=== PATIENT | male | born 1940 | race Caucasian/White ===

== ENCOUNTER → 2020-06-11 | Outpatient (CLI) | payer MEDICARE, OTHER ==
[~2020-06-11] MED LIST: AMARYL2 MG PO; CENTRUM SILVER1 EAC2 PO; CLARITIN10 MG PO; CRESTOR10 MG PO; FISH OIL 1,001000 M2 PO; HYDROCODON-ACE1 EAC7 PO; IBUPROFEN 200200 M1 PO; KLOR-CON 10 ER10 MEQ PO; LISINOPRIL20 MG PO; MIRALAX17 GM PO; NEURONTIN 400400 M1 PO; NORVASC5 MG PO; PINDOLOL10 MG PO; TRIAMTERENE-HC1 EAC1 PO; ZANTAC 150MG T150 MG PO
--- NOTE | 2020-06-13 17:00 | CARDNUC ---
[place] [address] CARDIAC NUCLEAR IMAGING REPORT Name: LIZET GILLILAND Keila Room: [facility]#: [id number] Admission: 06/11/20 Attend Phys: Ren Jimenez Discharge: Date of : 44 Date of Service: 06/13/20 1659 Report #: [id number] THIS REPORT FOR: cc: Melba West MD, Lin W. MD Liston, Michael J. MD [facility] ~ APPROVED REPORT Imaging Protocol: Stress Tc-99m/Rest Tc-99m 1 day Study performed: 06/11/2020 12:30:00 Indication: Dyspnea, Pre-Operative CV evaluation Patient Location: Out-Patient Stress Tech: Marielos Chavarria Stress Nurse: Twila Guido RN Ht: 5 ft 4 in Wt: 140 lbs BSA: 1.68 m2 BMI: 24.02 Medical History Medical History: CAD non obstructive, HTN, Hyperlipidemia Medications: amlodipine, lisinopril, pindolol, klor-con, rosuvastatin, maxide Allergies: No known drug allergies Exercise History: Indeterminate Meds Held (24 hrs): pindolol Resting Data Rest SPECT myocardial perfusion imaging was performed in supine position 30 minutes following the intravenous injection of 10.7 mCi of Tc-99m Sestamibi. Time of rest injection: 13:05 Administration Route: IV Administration Site: Right Hand Pharmacologic Stress Pharmacologic stress test was performed by injecting Regadenoson 0.4 mg IV push over 10-15 seconds immediately followed by the intravenous injection of 32.6 mCi of Tc-99m Sestamibi. Time of stress injection: 14:30 Administration Route: IV Administration Site: Right Hand Heart Rate at time of stress injection: [place] [address] CARDIAC NUCLEAR IMAGING REPORT Name: LIZET GILLILAND Room: [facility]#: [id number] Admission: 06/11/20 Attend Phys: Ren Jimenez Discharge: Date of : 44 Date of Service: 06/13/20 1659 Report #: [id number] Gated Stress SPECT was performed 40 minutes after stress injection. The images were gated to evaluate regional wall motion and calculate left ventricular ejection fraction. Stress Test Details Stress Test: Pharmacologic stress testing performed using 0.4 mg of regadenoson per 5 mL given IV over 10 seconds. Reason for pharmacologic stress test: physical limitation. HR Max Heart Rate (APMHR): 142 bpm Resting HR: 59 bpm Target HR (85% APMHR): 120 bpm Max HR Achieved: 67 bpm % of APMHR: 47 Recovery HR: 59 bpm BP Resting BP: 136/85 mmHg Max BP: 120/56 mmHg Recovery BP: 180/57 mmHg ECG Resting ECG: Sinus Rhythm Stress ECG: Sinus Rhythm ST Change: None Arrhythmia: None Recovery ECG: Sinus Rhythm Recovery ST Change: None Recovery Arrhythmia: None Clinical Reason for Termination: Completed protocol Patient tolerated Lexiscan infusion without significant cardiac symptoms. Nurse Comments pt has amputated leg Stress ECG Conclusion The baseline twelve-lead EKG shows sinus rhythm without significant ST segment or T wave abnormalities. EKGs obtained during and post Lexiscan infusion show sinus rhythm with no significant ST segment or T wave changes when compared to baseline. There were no stress-induced arrhythmias. Study Quality Study: [place] [address] CARDIAC NUCLEAR IMAGING REPORT Name: LIZET GILLILAND Room: [facility]#: [id number] Admission: 06/11/20 Attend Phys: Ren Jimenez Discharge: Date of : 44 Date of Service: 06/13/20 1659 Report #: [id number] Artifact: Mild Diaphragmatic artifact Study Data At rest, the left ventricular ejection fraction was 74%.. Post stress, the left ventricular ejection was 75%.. TID = 1.10. Wall Motion Normal left ventricular wall motion. Nuclear Conclusion ECG Findings: negative for ischemia Clinical Findings: negative for ischemia Nuclear Findings: negative for ischemia Exercise Capacity: not assessed Left Ventricular Function: normal Risk Study: low Perfusion images show no defect to suggest infarct or ischemia. Left ventricular systolic function appears normal on gated studies. This is a low risk study. <Conclusion> The baseline twelve-lead EKG shows sinus rhythm without significant ST segment or T wave abnormalities. EKGs obtained during and post Lexiscan infusion show sinus rhythm with no significant ST segment or T wave changes when compared to baseline. There were no stress-induced arrhythmias. <ELECTRONICALLY SIGNED> By: Yury Vargas MD, FACC 06/13/201658 [id number] Yury Vargas MD, FACC /INF
== END ==
LOC: M.CRD 06-06 09:49 → M.NUC 06-10 08:30 → M.CRD 06-10 09:00 → M.NUC 08:30
PROVIDERS: ATTEND Internal Medicine
DX: I10 Essential (primary) hypertension (principal); E78.2 Mixed hyperlipidemia; E11.9 Type 2 diabetes mellitus without complications; Z82.49 Family history of ischemic heart disease and other diseases of the circulatory system; R06.00 Dyspnea, unspecified